=== PATIENT | female | born 1955 | race Caucasian/White ===

== ENCOUNTER 2016-09-07 01:11 | Emergency (ER) | payer BC ==
--- NOTE | 2016-09-07 01:18 | PDOC ---
History of Present Illness - General Chief Complaint: Urinary Problem Stated Complaint: URINARY SYMPTOMS Time Seen by Provider: 09/07/16 01:17 - History of Present Illness Initial Comments: This 61-year-old woman with a history of recurrent UTIs in the past presents with one week history of persistent burning with urination/suprapubic discomfort. Patient states that her general medical doctor called in prescription for nitrofurantoin and Pyridium on 08/30/16 for her symptoms. Despite taking medications as prescribed, the patient has persistent dysuria and urinary urgency. She denies back pain, nausea /vomiting, fever/chills. Patient states that she began having recurrent UTIs approximately 5 years ago. Last year, she was referred to a urologist (Dr. Phoenix)by her bathing suit maker , who prescribed UTI suppression doses of nitrofurantoin. She was free of any bladder infections until the current episode. No history of pyelonephritis or renal colic. Past History - Past Medical History Allergies/Adverse Reactions: Allergies Allergy/AdvReac Type Severity Reaction Status Date / Time No Known Allergies Allergy Unverified 09/07/16 01:14 Home Medications: Ambulatory Orders Ciprofloxacin [Cipro (Restricted To Id)] 250 mg PO BID #10 tablet 09/07/16 Nitrofurantoin Macrocrystal [Macrodantin -] 100 mg PO BID 09/07/16 Phenazopyridine HCl [Pyridium] 100 mg PO PRN PRN 09/07/16 Phenazopyridine HCl [Pyridium] 200 mg PO TID #6 tablet 09/07/16 Review of Systems - Review of Systems Able to Perform ROS?: Yes Comments:: 12 point review of systems is negative except for what is noted in the history of present illness *Physical Exam - Physical Exam Comments: GENERAL: Adult female, in mild distress secondary to suprapubic discomfort HEAD: Normal with no signs of trauma. EYES: PERRLA, EOMI, sclera anicteric, conjunctiva clear. ENT: Ears normal, nares patent, oropharynx clear without exudates. Dry mucous membranes. NECK: Normal range of motion, supple without lymphadenopathy, JVD, or masses. LUNGS: Breath sounds equal, clear to auscultation bilaterally. No wheezes, and no crackles. HEART:Regular rate and rhythm, normal S1 and S2 without murmur, rub or gallop. ABDOMEN:.normal bowel sounds mild suprapubic tenderness. No guarding or rebound.No masses No distention. no CVA tenderness EXTREMITIES: Normal range of motion, no edema. No clubbing or cyanosis. No erythema, or tenderness. NEUROLOGICAL: Cranial nerves II through XII grossly intact. Normal speech. No focal neurological deficits. SKIN: Warm, Dry, normal turgor, no rashes or lesions noted. Progress Note - Progress Note Progress Note: This 61-year-old woman presents with Persistent urinary tract infection symptoms despite treatment with nitrofurantoin for 1 week. UA/urine culture and sensitivity sent. UA consistent with persistent UTI with positive nitrite, 10 WBCs/5-10 RBCs and few bacteria. Urine C & S pending. Patient states that she has taken ciprofloxacin in the past without ALLERGY or side effect. We will start her on ciprofloxacin with loading dose of 500 mg by mouth now followed by 250 mg twice a day for 5 days. Meanwhile, the patient can continue to take Pyridium 200 mg up to 3 times a day as needed for dysuria/ suprapubic discomfort. She return to the emergency room if her symptoms worsen or she experiences fever/vomiting/back pain. She should drink plenty of fluids. She should plan on following up with her general doctor within the next few days. *DC/Admit/Observation/Transfer Diagnosis at time of Disposition: UTI (urinary tract infection) Qualifiers: Urinary tract infection type: acute cystitis Hematuria presence: without hematuria Qualified Code(s): N30.00 - Acute cystitis without hematuria - Discharge Dispostion Disposition: HOME Condition at time of disposition: Stable - Prescriptions Prescriptions: Ciprofloxacin [Cipro (Restricted To Id)] 250 mg PO BID #10 tablet Phenazopyridine HCl [Pyridium] 200 mg PO TID #6 tablet - Referrals Referrals: STAFF,NOT ON [Primary Care Provider] - - Patient Instructions Printed Discharge Instructions: DI for Urinary Tract Infection (UTI) Additional Instructions: Cipro 250 mg twice a day for 5 days Pyridium 200 mg 3 times a day for 2 days Drink plenty of water Return if you have worsening pain or experiences fever/vomiting Follow-up with your doctor within the next 2-3 days
[2016-09-07 01:32] VITALS: BP 124/79; PULSE 64; TEMP 97.8; BMI 30.9
[2016-09-07 01:46] LABS: URINE APPEARANCE CLEAR; URINE BILIRUBIN NEGATIVE (NEGATIVE); URINE COLOR AMBER; URINE GLUCOSE (UA) NEGATIVE (NEGATIVE); URINE KETONE NEGATIVE (NEGATIVE); URINE LEUK ESTERASE NEGATIVE (NEGATIVE); URINE NITRITE POSITIVE (NEGATIVE); URINE PROTEIN NEGATIVE (NEGATIVE); URINE UROBILINOGEN 4.0 E.U/dl E.U./dl (0.2-1.0)
[2016-09-07 02:01] LABS: URINE BLOOD 1+ (NEGATIVE)
[2016-09-07 02:03] LABS: URINE BACTERIA FEW /hpf (NONE SEEN); URINE RBC 10 /hpf (0-3); URINE WBC 5 /hpf (3-5)
[2016-09-07] MEDS ORDERED: CIPROFLOXACIN 500 MG TABLET (RESTRICTED TO ID) PO ONE (02:29)
[2016-09-07] MEDS ORDERED: CIPROFLOXACIN 250 MG TABLET (RESTRICTED TO ID) PO ONE (02:34)
[2016-09-07] MEDS ORDERED: PHENAZOPYRIDINE HCL 100 MG TABLET (FP) PO ONE (02:37)
[2016-09-07] MEDS ORDERED: PHENAZOPYRIDINE HCL 100 MG TABLET (FP) ONE (02:39)
== END 2016-09-07 02:43 | disposition home or self-care (01) ==
LOC: FER 01:11
DX: N30.00 Acute cystitis without hematuria (principal); Z87.440 Personal history of urinary (tract) infections
CPT/HCPCS: 81003; 81015; 87086; 99282-25

== ENCOUNTER → 2020-02-07 | Day surgery (SDC) | payer BC | END | disposition home or self-care (01) | LOC: JRADIR 10:03 | PROVIDERS: ATTEND Otolaryngology | PROC: 0G9K3ZX Drainage of Thyroid Gland, Percutaneous Approach, Diagnostic (ICD-10-PCS; principal; 2020-02-07) | DX: E04.1 Nontoxic single thyroid nodule (principal) | CPT/HCPCS: 76942; 88173; 88305-TC ==

== ENCOUNTER 2021-01-22 13:52 | Emergency (ER) | payer BC ==
[2021-01-22 14:04] VITALS: BMI 30.9
[2021-01-22] MEDS ORDERED: LACTATED RINGERS SOLUTION 1000 ML INFUS.BAG IV ONE (14:51)
[2021-01-22] MEDS ORDERED: diazePAM 5 MG TABLET PO ONE ×2 (14:51→16:39)
[2021-01-22] MEDS ORDERED: METOCLOPRAMIDE HCL INJECTION 10 MG/2 ML VIAL IVPUSH ONE (14:51)
[2021-01-22] MEDS ORDERED: METOCLOPRAMIDE HCL INJECTION 10 MG/2 ML VIAL ONE (14:59)
[2021-01-22] MEDS ORDERED: diazePAM 5 MG TABLET ONE (14:59)
[2021-01-22 15:27] LABS: BASO % 0.5 % (0-2.0); EOS % 0.2 % (0-4.5); HEMATOCRIT 41.1 % (32.4-45.2); HEMOGLOBIN 14.3 GM/dL (10.7-15.3); LYMPH % 14.5 % (8-40); MCH 31.4 pg (25.7-33.7); MCHC 34.7 g/dl (32.0-36.0); MEAN CELL VOLUME 90.3 fl (80-96); MEAN PLT VOLUME 7.8 fl (7.5-11.1); MONO % 3.2 % (3.8-10.2); NEUT % 81.6 % (42.8-82.8); PLATELET COUNT 289 10^3/uL (134-434); RBC 4.56 M/mm3 (3.60-5.2); RDW 12.7 % (11.6-15.6); WHITE BLOOD COUNT 8.8 K/mm3 (4.0-10.0)
[2021-01-22 15:47] LABS: CHLORIDE 99 mmol/L (98-107); SODIUM 132 mmol/L (136-145)
[2021-01-22 15:50] LABS: ALBUMIN 3.7 g/dl (3.4-5.0); ANION GAP 16 MMOL/L (8-16); BLOOD UREA NITROGEN 15.3 mg/dL (7-18); CO2 17 mmol/L (21-32); GLUCOSE,RANDOM 150 mg/dL (74-106)
[2021-01-22 15:53] LABS: CREATININE 0.7 mg/dL (0.55-1.3); MAGNESIUM 1.8 mg/dL (1.8-2.4); SGOT/AST 23 U/L (15-37); SGPT/ALT 27 U/L (13-61)
[2021-01-22 15:54] LABS: BILIRUBIN,TOTAL 0.4 mg/dL (0.2-1)
[2021-01-22 15:55] LABS: TOT PROT 7.5 g/dl (6.4-8.2)
[2021-01-22 15:56] LABS: ALK PHOS 81 U/L (45-117)
[2021-01-22] MEDS ORDERED: ONDANSETRON 4 MG/2 ML VIAL IVPUSH ONE (16:39)
[2021-01-22] MEDS ORDERED: LORazepam 2 MG/ML SDV VIAL IVPUSH ONE (16:42)
[2021-01-22] MEDS ORDERED: LORazepam 2 MG/ML SDV VIAL ONE (16:50)
[2021-01-22 17:21] LABS: EPI CELLS >36 /uL (0-25.1); HYALINE CASTS 1 /uL (0-3.1); PH,URINE 7.5 (5.0-8.0); URINE APPEARANCE CLEAR; URINE BACTERIA 150 /uL (0-1359); URINE BILIRUBIN NEGATIVE (NEGATIVE); URINE COLOR YELLOW; URINE GLUCOSE (UA) NEGATIVE (NEGATIVE); URINE KETONE 1+ (NEGATIVE); URINE LEUK ESTERASE NEGATIVE (NEGATIVE); URINE NITRITE NEGATIVE (NEGATIVE); URINE PROTEIN NEGATIVE (NEGATIVE); URINE RBC 33 /uL (0-23.9); URINE UROBILINOGEN 0.2 mg/dL (0.2-1.0); URINE WBC 8 /uL (0-25.8)
[2021-01-22 18:58] VITALS: BP 136/78; PULSE 87
== END 2021-01-22 19:25 | disposition home or self-care (01) ==
LOC: JER 13:52
PROC: 3E033NZ Introduction of Analgesics, Hypnotics, Sedatives into Peripheral Vein, Percutaneous Approach (ICD-10-PCS; principal; 2021-01-22)
PROC: 3E033GC Introduction of Other Therapeutic Substance into Peripheral Vein, Percutaneous Approach (ICD-10-PCS; 2021-01-22)
PROC: 3E033GC Introduction of Other Therapeutic Substance into Peripheral Vein, Percutaneous Approach (ICD-10-PCS; 2021-01-22)
DX: R42 Dizziness and giddiness (principal)
CPT/HCPCS: 36415; 70450-TC; 71045-TC-FY; 80053; 81003; 82962; 83735; 84484; 85025; 87086; 93005; 93010; 99285-25; C9803; U0003; U0005

== ENCOUNTER 2024-09-01 06:06 | Day surgery (SDC) | payer OTHER, BC ==
[2024-08-31 14:39] VITALS: BMI 31.2
[2024-09-01 10:37] VITALS: TEMP 97.9
[2024-09-01 11:06] VITALS: RESP 16
[2024-09-01 11:15] VITALS: BP 119/50; PULSE 67
== END 2024-09-01 11:24 | disposition home or self-care (01) ==
LOC: JASU-ENDO 06:06
PROVIDERS: ATTEND Internal Medicine Gastroenterology
PROC: 0DBM8ZX Excision of Descending Colon, Via Natural or Artificial Opening Endoscopic, Diagnostic (ICD-10-PCS; principal; 2024-09-01 09:00)
DX: K57.30 Diverticulosis of large intestine without perforation or abscess without bleeding (principal); K64.8 Other hemorrhoids
CPT/HCPCS: 88305-TC; 88313-TC